=== PATIENT | female | born 1980 | race Caucasian/White ===

== ENCOUNTER 2016-09-10 14:12 | Emergency (ER) | payer SELFPAY ==
--- NOTE | 2016-09-17 10:17 | ER ---
ADMIT: 09/10/2016 RM/LOC: ER [facility] MR#: [id number] [place], [place] [id number] JAVIER WELLS [address] [place] [id number] Emergency Room Report SEX: F AGE: 36 : 1980 DATE: 09/10/2016 HISTORY OF PRESENT ILLNESS: A 36-year-old with left facial swelling about 3 days now, continues in the ER. She has an infection in her face, she says. She is alert and oriented. She has had a headache. PAST MEDICAL HISTORY: Includes gastritis. She has had x3 with a D and C x2. MEDICATIONS: She takes amitriptyline and muscle relaxers. ALLERGIES: SHE HAS NO ALLERGIES. SOCIAL HISTORY: She also smokes marijuana. PHYSICAL EXAMINATION: VITAL SIGNS: She is afebrile. Temp 98.2, heart rate is 90 with respirations of 18, blood pressure 126/81. HEENT: Left sinus swelling, maxillary tenderness, moderately anxious. NEUROLOGIC: Alert and oriented. RESPIRATIONS: No distress. ABDOMEN: Nontender. SKIN: Good color and turgor. She does have a slight erythema in her left maxilla. EXTREMITIES: Nontender. EMERGENCY DEPARTMENT COURSE: She was given clindamycin 600 mg IV and Toradol 30 mg IV. CBC was done, came back with a white count of 7.1, hemoglobin 12.9, and platelets 319, no left shift. CLINICAL IMPRESSION: Left maxillary sinus abscess secondary to dental caries. DISPOSITION: She was sent home with a prescription for clindamycin. She did still complain of pressure behind her left eye. Apparently, her infection is causing swelling around the upper aspect of her cheek. She is encouraged to follow up with primary provider, use Tylenol or Motrin as needed for pain, rest, push fluids, use warm packs to the face twice a day. No smoking. Must follow up with dentist. Take antibiotic as prescribed, which means she needs to start the antibiotics tomorrow. She was given City Call Dr. Valadez. CHARISSA Rodriguez / Horacio Edwards MD / josephine JOB #: [id number] CC: Horacio Edwards MD, Attending Physician Gely Valadez MD, Family Physician
== END 2016-09-10 17:00 | disposition home or self-care (01) ==
LOC: ER 14:12
DX: M27.2 Inflammatory conditions of jaws (principal); K02.9 Dental caries, unspecified; F17.210 Nicotine dependence, cigarettes, uncomplicated; G43.909 Migraine, unspecified, not intractable, without status migrainosus